=== PATIENT | female | born 1995 | race Two or more races ===

== ENCOUNTER 2025-06-12 06:45 | Observation (INO) | payer MEDICAID ==
--- NOTE | 2025-06-12 13:03 | DVHDS2 ---
Physician Discharge Progress N Final Diagnosis: IUP 33 wk, GDMA1 Secondary Diagnosis: Possible Nuchal cord seen on US Operations or Procedures: Operations or Procedures NST/BPP/ RACHEL all WNL Commentary: Commentary status reassuring. Not in labor Condition on Discharge: Stable Disposition: Home Discharge Instructions: Diet: Consistent carbohydrate Activity: Light activity Follow Up/Referral: As scheduled Medications: NA Follow Up Care: Discharge Statement: "Patient was advised to return to the ER or call 911 if any headaches, dizziness, shortness of breath, chest pain, abdominal pain, bleeding, fevers, or worsening of medical condition. Patient was counseled about treatment plan, medications, possible side effects, patientverbalized understanding. All questions were answered to the best of my ability. This discharge took greater then 30 minutes in planning, reviewing documentation, counseling the patient, and discussing with other team members." Visit Coding OBGYN Date of Service: Jun 12, 2025 Billing Provider: REINALDO NGO DO CAN TESTER Common Visit Codes: 57155-HBM/OBS SAME DATE (MOD) CAN TESTER Procedure Codes: 52663-49- NON-STRESS TEST REINALDO NGO DO Jun 12, 2025 13:03
--- NOTE | 2025-06-12 13:06 | DVH ---
BIOPHYSICAL PROFILE HISTORY: GDMA1 TECHNIQUE: Multiple transabdominal real-time grayscale sonographic images through the gravid uterus of the fetus with duplex Doppler color flow and M-mode spectral analysis FINDINGS: BIOPHYSICAL PROFILE: breathing score: 2 movement score: 2 tone score: 2 Quantitative RACHEL score: 2 (RACHEL: 12.5 Cm.) Total score: 8 The cervix was not seen Single live fetus in cephalic presentation. heart rate 150 beats per minute. Grade II anterior placenta without previa or abruption IMPRESSION: Biophysical profile score: 8 Possible nuchal cord.
== END 2025-06-12 13:28 | disposition home or self-care (01) ==
LOC: LDRP 12:00
PROVIDERS: ADMIT Obstetrics & Gynecology; ATTEND Obstetrics & Gynecology
DX: O24.419 Gestational diabetes mellitus in pregnancy, unspecified control (principal); Z98.890 Other specified postprocedural states; Z79.899 Other long term (current) drug therapy; Z3A.33 33 weeks gestation of pregnancy
CPT/HCPCS: 59025; 76819; 81002; 82948; G0378

== ENCOUNTER 2025-06-18 10:13 | Observation (INO) | payer MEDICAID ==
--- NOTE | 2025-06-18 10:58 | DVH ---
BIOPHYSICAL PROFILE HISTORY: GDMA2 Comparison Study: US BIOPHYSICAL PROFILE on DOS: 06/12/25 TECHNIQUE: Multiple real-time grayscale sonographic images through the gravid uterus of the fetus wit h duplex doppler color flow and M-mode spectral analysis FINDINGS: BIOPHYSICAL PROFILE: breathing score: 2 movement score: 2 tone score: 2 Quantitative RACHEL score: 2 (RACHEL: 13.9 cm.) Total score: 8 Cephalic positioning of the fetus. heart rate obtained measuring 141 beats per minute. No place nta previa or abruption noted. Anterior placenta is present. IMPRESSION: 1. Biophysical profile score: 8
[2025-06-18] MEDS ORDERED: METF-489 PO (11:30)
[2025-06-18] MEDS ORDERED: PREN-96 PO (11:30)
--- NOTE | 2025-06-19 06:12 | DVHDS2 ---
Discharge Summary Date of Admission Jun 18, 2025 at 10:13 Date of Discharge: Jun 18, 2025 Admitting Diagnosis 34 + GDMA2 Brief Hx & Hospital Course: Good care NST performed and reactive ; US reassuring Condition at Discharge: Good Final Diagnosis/Problems List 34 [id number] + weeks Discharge Disposition: Home Discharge Instruct/Medications Diet: Consistent carbohydrate Activity: No Restrictions, As Tolerated Follow Up/Referral: as scheduled kick counts labor precautions Scheduled Metformin Hydrochloride (Metformin Hcl Er), 1 TAB PO DAILY, (Reported) Vit W/ Ferrous Fumara ( One Daily), 1 TAB PO DAILY, (Reported) Discharge Statement: "Patient was advised to return to the ER or call 911 if any headaches, dizziness, shortness of breath, chest pain, abdominal pain, bleeding, fevers, or worsening of medical condition. Patient was counseled about treatment plan, medications, possible side effects, patientverbalized understanding. All questions were answered to the best of my ability. This discharge took greater then 30 minutes in planning, reviewing documentation, counseling the patient, and discussing with other team members." ASSESSMENT ASSESSMENT Assessment Visit Coding OBGYN Date of Service: Jun 18, 2025 Billing Provider: LISA LYNN DO ACADEMIC GUIDANCE SPECIALIST Common Visit Codes: 08954-ZVU/OBS SAME DATE (LOW), 69918-CDW/OBS SAME DATE (MOD), 29947-EWA/OBS SAME DATE (HIGH) ACADEMIC GUIDANCE SPECIALIST Procedure Codes: 71944-99- NON-STRESS TEST LISA LYNN DO Jun 19, 2025 06:12
== END 2025-06-18 11:38 | disposition home or self-care (01) ==
LOC: LDRP 10:13
PROVIDERS: ADMIT Obstetrics & Gynecology; ATTEND Obstetrics & Gynecology
DX: O24.419 Gestational diabetes mellitus in pregnancy, unspecified control (principal); Z3A.34 34 weeks gestation of pregnancy; Z98.890 Other specified postprocedural states; Z79.899 Other long term (current) drug therapy
CPT/HCPCS: 59025; 76819; 81002; 82948; 94760; G0378

== ENCOUNTER 2025-06-20 16:46 | Observation (INO) | payer MEDICAID ==
[~2025-06-20 16:46] MED LIST: METF-489 PO; PREN-96 PO
--- NOTE | 2025-06-20 18:23 | DVHDS2 ---
Physician Discharge Progress N Final Diagnosis: testing for GDM, A2 Operations or Procedures: Operations or Procedures 29yo IUP@34.5wks VSS NST reactive BPP 06/23 FKC/PTL precautions reviewed Dr. Escobar consulted, agrees with POC. Condition on Discharge: Stable Disposition: Home Discharge Instructions: Diet: Consistent carbohydrate Activity: No Restrictions, As Tolerated Follow Up/Referral: as scheduled Medications: see med list Follow Up Care: Specialist: f/u in 3 days Discharge Statement: "Patient was advised to return to the ER or call 911 if any headaches, dizziness, shortness of breath, chest pain, abdominal pain, bleeding, fevers, or worsening of medical condition. Patient was counseled about treatment plan, medications, possible side effects, patientverbalized understanding. All questions were answered to the best of my ability. This discharge took greater then 30 minutes in planning, reviewing documentation, counseling the patient, and discussing with other team members." Visit Coding OBGYN Date of Service: Jun 20, 2025 Billing Provider: LATANYA NORTH CNM WEAPONS OFFICER Common Visit Codes: 95333-[id number] OBS CARE (HIGH) WEAPONS OFFICER Procedure Codes: 52146-82- NON-STRESS TEST LATANYA NORTH CNM Jun 20, 2025 18:23
--- NOTE | 2025-06-20 19:59 | DVH ---
BIOPHYSICAL PROFILE HISTORY: GDMA2 Comparison Study: US BIOPHYSICAL PROFILE on DOS: 06/18/25, US BIOPHYSICAL PROFILE on DOS: 06/12/25 TECHNIQUE: Multiple real-time grayscale sonographic images through the gravid uterus of the fetus wi th duplex Doppler color flow and M-mode spectral analysis FINDINGS: BIOPHYSICAL PROFILE: breathing score: 3.71 movement score: 4.08 tone score: 2.08 Quantitative RACHEL score: 15.62 cm, normal Total score: 8, normal Single live fetus in cephalic presentation. IMPRESSION: 1. Biophysical profile score: 8, normal
== END 2025-06-20 18:16 | disposition home or self-care (01) ==
LOC: LDRP 16:46
PROVIDERS: ADMIT Obstetrics & Gynecology; ATTEND Obstetrics & Gynecology
DX: O24.419 Gestational diabetes mellitus in pregnancy, unspecified control (principal); Z3A.34 34 weeks gestation of pregnancy; Z98.890 Other specified postprocedural states; Z79.899 Other long term (current) drug therapy
CPT/HCPCS: 59025; 76819; 81002; 82948; 82962; 94760; G0378

== ENCOUNTER 2025-06-23 06:50 | Observation (INO) | payer MEDICAID ==
--- NOTE | 2025-06-23 14:14 | DVH ---
BIOPHYSICAL PROFILE HISTORY: GDMA2 TECHNIQUE: Multiple transabdominal real-time grayscale sonographic images through the gravid uterus of the fetus with duplex Doppler color flow and M-mode spectral analysis FINDINGS: BIOPHYSICAL PROFILE: breathing score: 2 movement score: 2 tone score: 2 Quantitative RACHEL score: 2 (RACHEL: 16.2 Cm.) Total score: 8 The cervix not well visualized Single live fetus in cephalic presentation. heart rate 151 beats per minute. Anterior placenta without previa or abruption IMPRESSION: Biophysical profile score: 8
--- NOTE | 2025-06-26 12:33 | DVHDS2 ---
Physician Discharge Progress N Final Diagnosis: gdm 34 wks Operations or Procedures: Operations or Procedures nst reactive reviwed,sono Condition on Discharge: Good Disposition: Home Discharge Instructions: Diet: Consistent carbohydrate Activity: No Restrictions, As Tolerated Medications: na Follow Up Care: Specialist: 3d Discharge Statement: "Patient was advised to return to the ER or call 911 if any headaches, dizziness, shortness of breath, chest pain, abdominal pain, bleeding, fevers, or worsening of medical condition. Patient was counseled about treatment plan, medications, possible side effects, patientverbalized understanding. All questions were answered to the best of my ability. This discharge took greater then 30 minutes in planning, reviewing documentation, counseling the patient, and discussing with other team members." Visit Coding OBGYN Date of Service: Jun 23, 2025 Billing Provider: MARIAM VASQUEZ DO STAFF AUDITOR Common Visit Codes: 25617-CWLPIKZ OBS CARE (HIGH) STAFF AUDITOR Procedure Codes: 19571-55- NON-STRESS TEST MARIAM VASQUEZ DO Jun 26, 2025 12:33
== END 2025-06-23 15:11 | disposition home or self-care (01) ==
LOC: UNDOADMOB 13:01 → LDRP 13:01
PROVIDERS: ADMIT Obstetrics & Gynecology; ATTEND Obstetrics & Gynecology
DX: O24.419 Gestational diabetes mellitus in pregnancy, unspecified control (principal); Z3A.35 35 weeks gestation of pregnancy; Z79.899 Other long term (current) drug therapy; Z98.890 Other specified postprocedural states
CPT/HCPCS: 59025; 76819; 81002; 82948; 82962; G0378

== ENCOUNTER 2025-06-26 07:04 | Observation (INO) | payer MEDICAID ==
--- NOTE | 2025-06-26 10:07 | DVH ---
BIOPHYSICAL PROFILE HISTORY: GDMA2 Comparison Study: US BIOPHYSICAL PROFILE on DOS: 06/23/25, US BIOPHYSICAL PROFILE on DOS: 06/20/25, US BI OPHYSICAL PROFILE on DOS: 06/18/25, US BIOPHYSICAL PROFILE on DOS: 06/12/25 TECHNIQUE: Multiple real-time grayscale sonographic images through the gravid uterus of the fetus wi th duplex Doppler color flow and M-mode spectral analysis FINDINGS: BIOPHYSICAL PROFILE: breathing score: 2 movement score: 2 tone score: 2 Quantitative RACHEL score: 2 (RACHEL: 16.6 Cm.) Total score: 8 The cervix is not visualized Single live fetus in cephalic presentation. heart rate 122 beats per minute. Cephalic placenta without previa or abruption IMPRESSION: Biophysical profile score: 8
--- NOTE | 2025-06-26 12:17 | DVHDS2 ---
Physician Discharge Progress N Final Diagnosis: gdma2 35wks Operations or Procedures: Operations or Procedures nst reactive reviwed,sono Condition on Discharge: Good Disposition: Home Discharge Instructions: Diet: Consistent carbohydrate Activity: No Restrictions, As Tolerated Medications: na Follow Up Care: Specialist: 1w Discharge Statement: "Patient was advised to return to the ER or call 911 if any headaches, dizziness, shortness of breath, chest pain, abdominal pain, bleeding, fevers, or worsening of medical condition. Patient was counseled about treatment plan, medications, possible side effects, patientverbalized understanding. All questions were answered to the best of my ability. This discharge took greater then 30 minutes in planning, reviewing documentation, counseling the patient, and discussing with other team members." Visit Coding OBGYN Date of Service: Jun 26, 2025 Billing Provider: MARIAM VASQUEZ DO BUCKLE SEWER MACHINE Common Visit Codes: 93595-IHRLPYS INP/OBS CARE (HIGH) BUCKLE SEWER MACHINE Procedure Codes: 59933-17- NON-STRESS TEST MARIAM VASQUEZ DO Jun 26, 2025 12:17
== END 2025-06-26 10:13 | disposition home or self-care (01) ==
LOC: LDRP 09:04
PROVIDERS: ADMIT Obstetrics & Gynecology; ATTEND Obstetrics & Gynecology
DX: O24.419 Gestational diabetes mellitus in pregnancy, unspecified control (principal); Z3A.35 35 weeks gestation of pregnancy; Z98.890 Other specified postprocedural states; Z79.899 Other long term (current) drug therapy
CPT/HCPCS: 59025; 76819; 81002; 82948; 82962; 94760; G0378

== ENCOUNTER 2025-06-29 11:39 | Outpatient (CLI) | payer MEDICAID ==
[2025-06-29 12:05] LABS: Hematocrit 41.7 % (36.0-46.0); Hemoglobin 14.5 g/dL (12.2-16.2); Mean Corpuscular Hemoglobin 28.7 pg (28.0-32.0); Mean Corpuscular Volume 82.4 fL (80.0-100.0); Nucleated Red Blood Cells % 0.0 %
[2025-07-01 00:07] LABS: Chlamydia Trachomatis, NAA Negative (Negative); Neisseria gonorrhoeae, NAA Negative (Negative)
== END 2025-06-29 17:00 | disposition home or self-care (01) ==
LOC: LAB 11:39
DX: Z34.80 Encounter for supervision of other normal pregnancy, unspecified trimester (principal); Z3A.00 Weeks of gestation of pregnancy not specified
CPT/HCPCS: 36415; 85025; 86780

== ENCOUNTER 2025-06-30 14:46 | Observation (INO) | payer MEDICAID ==
[~2025-06-30] VITALS: Ht 172.7 cm; Wt 93.0 kg
--- NOTE | 2025-06-30 20:25 | DVH ---
OB ULTRASOUND, LIMITED CLINICAL INDICATION: GDMA2 TECHNIQUE: Multiple grayscale ultrasound and M-mode images were obtained of the pelvis for evaluation of intrauterine . COMPARISON: US BIOPHYSICAL PROFILE on DOS: 06/26/25, US BIOPHYSICAL PROFILE on DOS: 06/23/25, US BIOPHYS ICAL PROFILE on DOS: 06/20/25 FINDINGS: A single living fetus is seen in cephalic presentation. Biophysical profile: 06/23 breathin movements: 2 tone: 2 Amniotic fluid: 2 Placenta: Anterior. Amniotic fluid: Visibly normal. RACHEL 19.3 cm heart rate: 130 beats/min. A complete anatomic survey was not performed on this exam. IMPRESSION: Biophysical profile: 06/23
[2025-06-30] MEDS: TERBUTALINE SULFATE 1 MG/ML 1ML VIAL SC SCH (21:26)
--- NOTE | 2025-06-30 22:29 | DVHDS2 ---
Physician Discharge Progress N Final Diagnosis: IUPat 36w 1d GDMA2 Contractions - Resolved Secondary Diagnosis: Contractions - Resolved Operations or Procedures: Operations or Procedures S: 30yo G presents to place for surveillance due to GDMA2. She reports normal movements, no UCs, no leakage of fluid, vaginal bleeding, PATEL, vision changes or epigastric pain O: A&O x3 NAD. Afebrile, VSS Respiration: unlabored heart and lung sounds normal. Abdomen: Gravid, non-tender to palpation Extremities: No edema BPP 8/8 EFM FHR baseline 135 mod variability with accelerations, no deceleration. UCs noted VE by RN 2.5/50% -2 A: Normal BPP Reactive NST Contractions P: Oral hydration Tocolysis with Terbutaline per consult with Dr Escobar Reassessment: O: UCs resolved; 1 in 20min A: Normal BPP Reactive NST Contractions - Resolved P: Discharge home with instructions Continue nutrition, exercise and surveillance 2x/week 3rd trimester emergency S&S FMC, PTL & pre-eclampsia precautions reviewed with pt; advised to seek health care if any symptom including but not limited to any of the above. Keep all Scheduled OB follow appointment with OB provider; seek care sooner if any symptoms Condition on Discharge: Stable Disposition: Home Discharge Instructions: Diet: See Comment Diet comment: Follow diet as advised for diabetes management. Ensure adequate hydration with water Activity: See Comment Activity comment: Pelvic rest and avoid vigorous / rigorous activity Medications: None Follow Up Care: Discharge Statement: "Patient was advised to return to the ER or call 911 if any headaches, dizziness, shortness of breath, chest pain, abdominal pain, bleeding, fevers, or worsening of medical condition. Patient was counseled about treatment plan, medications, possible side effects, patientverbalized understanding. All questions were answered to the best of my ability. This discharge took greater then 30 minutes in planning, reviewing documentation, counseling the patient, and discussing with other team members." Visit Coding OBGYN Date of Service: Jun 30, 2025 Billing Provider: LINETTE DENISE CNM PLASTIC TOOL MAKER Common Visit Codes: 39254-PXC/OBS SAME DATE (HIGH) PLASTIC TOOL MAKER Procedure Codes: 27964-05- NON-STRESS TEST LINETTE DENISE CNM Jun 30, 2025 22:29
== END 2025-06-30 22:35 | disposition home or self-care (01) ==
LOC: LDRP 18:56
PROVIDERS: ADMIT Obstetrics & Gynecology; ATTEND Obstetrics & Gynecology
DX: O60.03 Preterm labor without delivery, third trimester (principal); O24.419 Gestational diabetes mellitus in pregnancy, unspecified control; Z3A.36 36 weeks gestation of pregnancy; Z79.899 Other long term (current) drug therapy
CPT/HCPCS: 59025; 76819; 81002; 82948; 82962; 94760; 96372; G0378; J3105

== ENCOUNTER 2025-07-03 19:05 | Observation (INO) | payer MEDICAID ==
--- NOTE | 2025-07-03 20:20 | DVH ---
BIOPHYSICAL PROFILE HISTORY: GDMA2 TECHNIQUE: Multiple transabdominal real-time grayscale sonographic images through the gravid uterus of the fetus with duplex Doppler color flow and M-mode spectral analysis FINDINGS: BIOPHYSICAL PROFILE: breathing score: 2 movement score: 2 tone score: 2 Quantitative RACHEL score: 2 (RACHEL: 16.7 Cm.) Total score: 8 The cervix is not well-visualized Single live fetus in cephalic presentation. heart rate 130 beats per minute. Anterior placenta without previa or abruption Possible nuchal cord is visualized. IMPRESSION: Biophysical profile score: 8 Possible nuchal cord is visualized.
--- NOTE | 2025-07-04 05:29 | DVHDS2 ---
Physician Discharge Progress N Final Diagnosis: GDMA2 Secondary Diagnosis: Encounter for surveillance Suspected nuchal cord Operations or Procedures: Operations or Procedures NST/BPP RACHEL Commentary: Commentary PATIENT: BONITA RIVERA ACCT: [id number] UNIT: [id number] : 1995 LOC: [facility] ROOM / BED: TRIAGE1 / A AGE / SEX: 29 / F ADM STATUS: ADM IN SERVICE 04 ORDERING PHYSICIAN: REINALDO NGO DO PROCEDURE(s): BPP - BIOPHYSICAL PROFILE REASON: GDMA2 ORDER NUMBER(s): [id number], ACCESSION NUMBER(s): [id number] BIOPHYSICAL PROFILE HISTORY: GDMA2 TECHNIQUE: Multiple transabdominal real-time grayscale sonographic images through the gravid uterus of the fetus with duplex Doppler color flow and M-mode spectral analysis FINDINGS: BIOPHYSICAL PROFILE: breathing score: 2 movement score: 2 tone score: 2 Quantitative RACHEL score: 2 (RACHEL: 16.7 Cm.) Total score: 8 The cervix is not well-visualized Single live fetus in cephalic presentation. heart rate 130 beats per minute. Anterior placenta without previa or abruption Possible nuchal cord is visualized. IMPRESSION: Biophysical profile score: 8 Possible nuchal cord is visualized. ATED BY: BETTINA ENCINAS DO DICTATED DATE/TIME: 07/03/252017 Condition on Discharge: Stable Disposition: Home Discharge Instructions: Diet: Consistent carbohydrate Activity: No Restrictions, As Tolerated Follow Up/Referral: as scheduled 2x/wk NST/BPP Medications: no new meds Follow Up Care: Discharge Statement: "Patient was advised to return to the ER or call 911 if any headaches, d izziness, shortness of breath, chest pain, abdominal pain, bleeding, fevers, or worsening of medical condition. Patient was counseled about treatment plan, medications, possible side effects, patientverbalized understanding. All questions were answered to the best of my ability. This discharge took greater then 30 minutes in planning, reviewing documentation, counseling the patient, and discussing with other team members." Visit Coding OBGYN Date of Service: Jul 04, 2025 Billing Provider: REINALDO NGO DO SUPPLY CHAIN CONSULTANT Common Visit Codes: 60114-ZGT/OBS SAME DATE (HIGH) SUPPLY CHAIN CONSULTANT Procedure Codes: 07751-90- NON-STRESS TEST REINALDO NGO DO Jul 04, 2025 05:29
== END 2025-07-03 20:25 | disposition home or self-care (01) ==
LOC: LDRP 19:05
PROVIDERS: ADMIT Obstetrics & Gynecology; ATTEND Obstetrics & Gynecology
DX: O24.419 Gestational diabetes mellitus in pregnancy, unspecified control (principal); Z3A.36 36 weeks gestation of pregnancy; Z98.890 Other specified postprocedural states
CPT/HCPCS: 59025; 76819; 81002; 82948; 82962; 94760; G0378

== ENCOUNTER 2025-07-07 06:25 | Observation (INO) | payer MEDICAID ==
[~2025-07-07] VITALS: Ht 172.7 cm; Wt 93.0 kg
--- NOTE | 2025-07-07 10:06 | DVH ---
CLINICAL HISTORY: Gestational diabetes. COMPARISON: US BIOPHYSICAL PROFILE on DOS: 07/03/25, US BIOPHYSICAL PROFILE on DOS: 06/30/25, US BIOPHY SICAL PROFILE on DOS: 06/26/25 TECHNIQUE: biophysical profile was performed. Transabdominal sonographic images of the fetus we re obtained. FINDINGS: The fetus is in cephalic position. heart rate measures 134 BPM. Amniotic fluid index measures 14.7 cm. The placenta is anterior in position without visualized evidence of previa or abrup tion. BPP profile is an overall score of 8/8, with 2/2 points for breathing, with at least one episode of breathing over a 30 second duration during a 30 minute observation, 2/2 points for m ovements, with 3 or more discrete body or limb movements, 2/2 points for tone, with one or more episodes of extremity extension with return to flexion, or opening and closing of hand, and 2/ 2 points for amniotic fluid, with at least 1 pocket of amniotic fluid that measures 2 cm in 2 perpend icular planes. IMPRESSION: 1. BPP score of 8/8.
--- NOTE | 2025-07-07 14:06 | DVHDS2 ---
Physician Discharge Progress N Final Diagnosis: gdm Operations or Procedures: Operations or Procedures nst reacttive alonso whitaker Condition on Discharge: Good Disposition: Home Discharge Instructions: Diet: Consistent carbohydrate Activity: Light activity Medications: na Follow Up Care: Specialist: 3d Discharge Statement: "Patient was advised to return to the ER or call 911 if any headaches, dizziness, shortness of breath, chest pain, abdominal pain, bleeding, fevers, or worsening of medical condition. Patient was counseled about treatment plan, medications, possible side effects, patientverbalized understanding. All questions were answered to the best of my ability. This discharge took greater then 30 minutes in planning, reviewing documentation , counseling the patient, and discussing with other team members." Visit Coding OBGYN Date of Service: Jul 07, 2025 Billing Provider: MARIAM VASQUEZ DO HAUL CANE BRAKEMAN Common Visit Codes: 92958-[id number] INP/OBS CARE (HIGH) HAUL CANE BRAKEMAN Procedure Codes: 84243-05- NON-STRESS TEST MARIAM VASQUEZ DO Jul 07, 2025 14:06
== END 2025-07-07 10:26 | disposition home or self-care (01) ==
LOC: LDRP 09:08
PROVIDERS: ADMIT Obstetrics & Gynecology; ATTEND Obstetrics & Gynecology
DX: O24.419 Gestational diabetes mellitus in pregnancy, unspecified control (principal); Z3A.37 37 weeks gestation of pregnancy; Z79.899 Other long term (current) drug therapy
CPT/HCPCS: 59025; 76819; 81002; 82948; 94760; G0378

== ENCOUNTER 2025-07-11 06:56 | Observation (INO) | payer MEDICAID ==
--- NOTE | 2025-07-11 09:19 | DVH ---
BIOPHYSICAL PROFILE HISTORY: GDMA2 TECHNIQUE: Multiple transabdominal real-time grayscale sonographic images through the gravid uterus of the fetus with duplex Doppler color flow and M-mode spectral analysis FINDINGS: BIOPHYSICAL PROFILE: breathing score: 2 movement score: 2 tone score: 2 Quantitative RACHEL score: 2 (RACHEL: 22.7 Cm.) Total score: 8 The cervix not well visualized. Single live fetus in cephalic presentation. heart rate 138 beats per minute. Anterior placenta without previa or abruption IMPRESSION: Biophysical profile score: 8
--- NOTE | 2025-07-11 11:46 | DVHDS2 ---
Physician Discharge Progress N Final Diagnosis: IUP at 37.5wks and stable testing for GDM, A2 Operations or Procedures: Operations or Procedures 29yo IUP@37.5wks VSS NST reactive FKC/LABOR precautions reviewed Dr. Escobar consulted, agrees with POC. Other Interventions Other Interventions [facility] [id number] [place] [id number] Ph: [phone] DIAGNOSTIC IMAGING Diagnostic Imaging Report : [id number] Signed PATIENT: BONITA RIVERA ACCT: [id number] UNIT: [id number] : 1995 LOC: [facility] ROOM / BED: TRIAGE1 / A AGE / SEX: 29 / F ADM STATUS: ADM IN SERVICE 3 ORDERING PHYSICIAN: LATANYA NORTH CNM PROCEDURE(s): BPP - BIOPHYSICAL PROFILE REASON: GDMA2 ORDER NUMBER(s): [id number], ACCESSION NUMBER(s): [id number] BIOPHYSICAL PROFILE HISTORY: GDMA2 TECHNIQUE: Multiple transabdominal real-time grayscale sonographic images through the gravid uterus of the fetus with duplex Doppler color flow and M-mode spectral analysis FINDINGS: BIOPHYSICAL PROFILE: breathing score: 2 movement score: 2 tone score: 2 Quantitative RACHEL score: 2 (RACHEL: 22.7 Cm.) Total score: 8 The cervix not well visualized. Single live fetus in cephalic presentation. heart rate 138 beats per minute. Anterior placenta without previa or abruption IMPRESSION: Biophysical profile score: 8 ATED BY: TRISH LAMAR MD DICTATED DATE/TIME: 07/11/25916 SIGNED BY: TRISH LAMAR MD SIGNED DATE/TIME: 07/11/25916 CC: Condition on Discharge: Stable Disposition: Home Discharge Instructions: Diet: Consistent carbohydrate Activity: No Restrictions, As Tolerated Medications: see med list Follow Up Care: Specialist: f/u in 3 days Discharge Statement: "Patient was advised to return to the ER or call 911 if any headaches, dizziness, shortness of breath, chest pain, abdominal pain, bleeding, fevers, or worsening of medical condition. Patient was counseled about treatment plan, medications, possible side effects, patientverbalized understanding. All questions were answered to the best of my ability. This discharge took greater then 30 minutes in planning, reviewing documentation, counseling the patient, and discussing with other team members." Visit Coding OBGYN Date of Service: Jul 11, 2025 Billing Provider: LATANYA NORTH CNM MANAGER PRODUCT MANAGEMENT Common Visit Codes: 36500-VOPVPDX OBS CARE (HIGH) MANAGER PRODUCT MANAGEMENT Procedure Codes: 59191-63- NON-STRESS TEST LATANYA NORTH CNM Jul 11, 2025 11:46
== END 2025-07-11 09:57 | disposition home or self-care (01) ==
LOC: UNDOADMOB 08:16 → LDRP 08:16 → UNDODISOB 09:57
PROVIDERS: ADMIT Obstetrics & Gynecology; ATTEND Obstetrics & Gynecology
DX: O24.419 Gestational diabetes mellitus in pregnancy, unspecified control (principal); Z3A.37 37 weeks gestation of pregnancy; Z98.890 Other specified postprocedural states
CPT/HCPCS: 59025; 76819; 81002; 82962; 94760; G0378

== ENCOUNTER 2025-07-14 02:55 | Inpatient (IN) | payer MEDICAID ==
[~2025-07-14] VITALS: Ht 165.1 cm; Wt 83.9 kg
[2025-07-14] MEDS ORDERED: LACTATED RINGER'S 1,000 ML IV SCH (03:30)
[2025-07-14] MEDS ORDERED: BUTORPHANOL TARTRATE 2 MG/1 ML VIAL IV PRN ×2 (03:30)
[2025-07-14] MEDS ORDERED: LIDOCAINE 2%HCL (LOCAL ANESTH.) INJ 20ML MDV IJ PRN (03:30)
--- NOTE | 2025-07-14 03:44 | DVHHP2 ---
OB CC & HPI Date Date of Admission: Jul 14, 2025 Patient Identification: : 4 Para: 2 EDC: Jul 27, 2025 EGA: 38w1d Chief Complaints: Reason for admission: active labor, rupture of membranes Admission Nurse Assessment Rev: Yes History of Present Complaints Zoe Tomlin is a 29 year old with IUP at 38w1d presenting for r/o SROM. Patient states she began leaking clear fluid at 0040. She is also having co ntractions every 2-3 minutes. Denies vaginal bleeding and states positive movement. GBS negative. GDMA2 OB Hx: -LMP: 10/20/24 -PNC with Dr Escobar -Hx pre-e with 1st - x2, no delivery complications Past Medical History Cardiac: No pertinent Hx Pulmonary: No pertinent Hx Central Nervous System: No pertinent Hx GI: No pertinent Hx Hemotology/Oncology: No pertinent Hx Hepatobiliary: No pertinent Hx Psychiatric: No pertinent Hx Musculoskeletal: No pertinent Hx Rheumotologic: No pertinent Hx Infectious Disease: No peritnent Hx ENT: No pertinent Hx Renal/: No pertinent Hx Endocrine: No pertinent Hx Dermatology: No pertinent Hx Past Surgical History: No pertinent Hx Others BBL 4 years ago OB History OB History Care: Good Care Ultrasounds: Normal mid trimester US Obstetrical Complications: Gestational Diabetes (A2 on metformin) Medical Complications: None Allergies: Coded Allergies: NO KNOWN ALLERGIES (Unverified , 06/30/25) Home Meds Reported Medications Vit W/ Ferrous Fumara ( One Daily) Daily Tab, 1 TAB PO DAILY, #90 TAB 3 Refills 06/18/25 Metformin Hydrochloride (METFORMIN HCL ER) 500 Mg Tab, 1 TAB PO DAILY, #90 TAB 1 Refill 06/18/25 Current Medications Current Medications Medications (Trade) Dose Ordered Sig/Gwyn Route PRN Reason Start Time Stop Time Status Last Admin Lactated Ringer's 1,000 ml @ 125 mls/hr Q8H IV 07/14/25 03:30 UNV Witch Rita (Tucks) 1 pad PRN PRN TOP PERINEAL AREA DISCOMFORT 07/14/25 03:30 UNV Sodium Lauryl Sulfate (Phisoderm) 240 ml PRN PRN TOP PERINEAL AREA DISCOMFORT 07/14/25 03:30 UNV Benzocaine (Dermoplast) 1 applic PRN PRN TOP PERINEAL AREA DISCOMFORT 07/14/25 03:30 UNV Butorphanol Tartrate (Stadol Injection) 1 mg Q4HPRN PRN IV MODERATE PAIN (4-6 PAIN SCALE) 07/14/25 03:30 UNV Butorphanol Tartrate (Stadol Injection) 2 mg Q4HPRN PRN IV SEVERE PAIN (7-10 PAIN SCALE) 07/14/25 03:30 UNV Lidocaine HCl (Xylocaine) 20 ml ONCE PRN IJ PERINEAL AREA DISCOMFORT 07/14/25 03:30 UNV Diagnostic Test (Pha) (Accu-Chek Comfort Curve T) 1 strip Q4HP 07/14/25 04:00 UNV Family & Social History Family/Social History Blood Type: B+ Rubella: immune RPR/VDRL: Negative GBS Status: Negative HBsAG: Negative Review of Systems Constitutional: No symptom reported Ears, Nose, & Throat: No symptom reported Eyes: No symptom reported Pulmonary/Respiratory: No symptom reported Cardiovascular: No symptom reported Gastrointestinal: No symptom reported Genitourinary: No symptom reported Musculoskeletal: No symptom reported Skin: No symptom reported Psychiatric: No symptom reported Endocrine: No symptom reported Hemotologic/Lymphatic: No symptom reported OB Admission Exam Physical Exam Vitals: VSS. See CPN HEENT: NCAT, Nasal Mucosa Normal, Oropharynx Normal, PERRLA, Moist Membranes Heart: Rhythm Normal Lungs: Clear Abdomen: Gravid Extremities: Normal Reflexes: Normal Membranes: Ruptured Amniotic Fluid: Clear Heart Rate: 130's Accelerations: Accelerations Present Decelerations: No Decelerations Short Term Variability: Present Care Home Variability: Average (6-25) Contractions on Admission: < 5 Minutes Apart Intensity: Moderate OB Plan Plan Admitting Diagnosis: IUP at 38w1d SROM and in labor Category 1 tracing GBS negative Plan: Expectant Management Other Plan: -Plan of care and plan discussed with Patient -Process, Risks, benefits, of available management options discussed, including starting with expectant management, augmentation if indicated, Internal monitoring of UCs & FHT, AROM, amnioinfusion etc only when indicated -Patient agrees to starting with expectant management at this time, ; other interventions as indicated. Informed Consent obtained -Consent for possible blood transfusion obtained. -All questions answered. -Admit to Place for Labor -Routine L&D Admission orders -EFM per policy. OK to be intermittent per protocol, if FHR tracing is reactive and category 1 -Encourage ambulation and/exercises / frequent position change to facilitate labor & descent -Supportive care as needed. Patient requesting epidural at this time -Accucheck bedside blood glucose q 2 hours. -Re-assess cervix in 6 hours to evaluate need for augmentation -Anticipate normal spontaneous vaginal delivery Visit Coding OBGYN Date of Service: Jul 14, 2025 Billing Provider: GREGORY DAMON CNM WET INSPECTOR [employer] Common Visit Codes: 38731-[id number] OBS CARE (HIGH) [employer] Procedure Codes: 37773-35- NON-STRESS TEST GREGORY DAMON CNM Jul 14, 2025 03:44
[2025-07-14] MEDS: DERMOPLAST 60ML BOTTLE TOP PRN (03:45)
[2025-07-14] MEDS: PHISODERM TOP SOLN 240ML BTL TOP PRN (03:45)
[2025-07-14] MEDS: WITCH HAZEL-GLYCERIN PAD TOP PRN (03:45)
[2025-07-14] MEDS ORDERED: ACCU-CHEK COMFORT CURVE STRIP VI SCH (04:00)
[2025-07-14 04:10] LABS: Hematocrit 41.0 % (36.0-46.0); Hemoglobin 14.3 g/dL (12.2-16.2); Mean Corpuscular Hemoglobin 28.8 pg (28.0-32.0); Mean Corpuscular Volume 82.5 fL (80.0-100.0); Nucleated Red Blood Cells % 0.1 %
[2025-07-14 04:16] LABS: Alanine Aminotransferase 18 U/L (7-40); Albumin 4.4 g/dL (3.2-4.8); Anion Gap 12 (5-15); Bilirubin, Total 0.3 mg/dL (0.2-1.0); Calcium 9.6 mg/dL (8.7-10.4); Carbon Dioxide 21 mmol/L (20-31); Chloride 106 mmol/L (98-107); Glucose 95 mg/dL (74-106); Potassium 3.6 mmol/L (3.5-5.1); Sodium 139 mmol/L (136-145); Total Protein 7.2 g/dL (5.7-8.2)
[2025-07-14 04:19] LABS: Alkaline Phosphatase 144 U/L (46-116); BUN/Creatinine Ratio 12.2 (10.0-20.0); Blood Urea Nitrogen < 5 mg/dL (9-23)
[2025-07-14 04:27] LABS: INR 1.0 (0.9-1.15); Partial Thromboplastin Time 26.5 SEC (24.5-34.5); Prothrombin Time 10.6 sec (9.3-11.8)
[2025-07-14 04:36] LABS: Amphetamine Screen, Urine Neg (NEGATIVE); Barbiturate Scree,Urine Neg (NEGATIVE); Benzodiazephine Screen, Urine Neg (NEGATIVE); Cocaine Screen, Urine Neg (NEGATIVE)
[2025-07-14 04:37] LABS: Cannabinoid Screen, Urine Neg (NEGATIVE); Opiate Scree,Urine Neg (NEGATIVE); Phencyclidine Screen, Urine Neg (NEGATIVE)
[2025-07-14 04:41] LABS: Urine Protein, UAD Negative (Negative)
[2025-07-14] MEDS: LACT. RINGERS/OXYTOCIN 20UNITS 500 ML IV ONE ×2 (05:26→05:27)
--- NOTE | 2025-07-14 05:34 | LDN2 ---
Labor and Delivery Note Date 07/14/25 Age 29 4 Para 2->3 EDC 07/27/25 EGA 38w1d Diagnosis Intact perineum GDMA2 Vaginal Delivery: VTX Vacuum Assisted: No Placenta: Spontaneous (ela) Sex: Male Weight pending. Davis Hour in progress Apgars 9/9 Nuchal Cord Transected: No Amniotic Fluid: Clear Episiotomy: No Extension: No Repaired with 3-0 chromic SH EBL 100 in drape Comments/Significant Med Yoandy At 0459 this 29yo now delivered a viable male by w/ APGARS 9/9. [place]. Infant placed skin to skin on pts chest. True knot noted in cord and shown to patient Cord clamped and cut after 2.5 minutes. Cord blood sent. Intact 3-vessel cord and intact placenta (Ela), delivered spontaneously Pitocin IV bolus started. Placenta being taken home by pt to be encapsulated Cervix inspected and intact. Superficial left and right labial lacerations noted. Hemostatic. Discussed options with patient to leave them without sutures, repair both, or repair one to help prevent them from healing together. Patient opted to put a stitch into the L labial laceration. One interrupted stitch placed with 3-0 chromic SH Fundus at U, firm, midline, and light lochia. QBL 100ml. VSS. Count correct x2. Patient to care and baby to couplet care, both stable. Visit Coding OBGYN Date of Service: Jul 14, 2025 Billing Provider: GREGORY DAMON CNM C[employer] CUTTER HELPER Common Visit Codes: [id number] INP/OBS CARE(HIGH) [employer] C[employer] HEL[employer] Procedure Codes: 46132-YXK DEL INCLUDING GREGORY DAMON CNM Jul 14, 2025 05:34
[2025-07-14] MEDS ORDERED: ACETAMINOPHEN 325 MG TAB PO PRN (07:00)
[2025-07-14] MEDS ORDERED: ONDANSETRON ODT 4 MG TAB PO PRN (07:00)
[2025-07-14] MEDS: METHYLERGONOVINE MALEATE 0.2 MG/ML AMP IM ONE (11:19)
[2025-07-14 11:30] VITALS: BP 115/72; PULSE 92; RESP 16; TEMP 98.2; O2SAT 98
[2025-07-14 14:43] VITALS: BP 119/68; PULSE 88; RESP 16; TEMP 98.5; O2SAT 98
[2025-07-14 19:00] VITALS: BP 112/68; PULSE 99; RESP 17; TEMP 98.5; O2SAT 97
[2025-07-14] MEDS: IBUPROFEN 600 MG TAB PO PRN (20:20)
[2025-07-14 23:00] VITALS: BP 113/64; PULSE 84; RESP 16; TEMP 98.3; O2SAT 98
[2025-07-15 03:07] VITALS: BP 112/74; PULSE 89; RESP 16; TEMP 98.2; O2SAT 97
--- NOTE | 2025-07-15 04:31 | DVHPN2 ---
Progress Note Date Seen: Jul 15, 2025 Subjective S: Lochia minimal Tolerating regular diet well. Ambulating and voiding well w/o feeling lightheaded or dizzy. Passing flatus but no BM yet. Breast feeding. Contraceptive plan: IUD Desires and requests to be discharged home today vital signs Vital Sign Date Time Temp Pulse Resp B/P (MAP) Pulse Ox O2 Delivery O2 Flow Rate FiO2 07/15/25 03:07 98.2 89 16 112/74 (87) 97 98.2 07/14/25 19:00 Room Air Total Intake and Output 07/14/25 07/14/25 07/15/25 15:00 23:00 07:00 Output Total 2200 ml 600 ml Balance -2200 ml -600 ml medications Current Medications Medications Dose Ordered Sig/Gwyn Route Start Time Stop Time Status Last Admin Dose Admin Masha Salinas 1 pad PRN PRN TOP 07/14/25 03:30 07/14/25 03:45 1 PAD Sodium Lauryl Sulfate 240 ml PRN PRN TOP 07/14/25 03:30 07/14/25 03:45 240 ML Benzocaine 1 applic PRN PRN TOP 07/14/25 03:30 07/14/25 03:45 1 APPLIC Lidocaine HCl 20 ml ONCE PRN IJ 07/14/25 03:30 Ibuprofen 600 mg Q6HP PRN PO 07/14/25 07:00 07/14/25 20:20 600 MG Acetaminophen 650 mg Q4HP PRN PO 07/14/25 07:00 Ondansetron HCl 4 mg Q4HPRN PRN PO 07/14/25 07:00 Misoprostol 200 mcg ONCE PRN SL 07/14/25 10:30 07/14/25 11:19 200 MCG Misoprostol 600 mcg ONCE PRN DC 07/14/25 10:30 laboratory and microbiology Laboratory Tests 07/14/25 03:39 Test 07/14/25 03:39 Range/Units Serum Glucose 95 74-106 mg/dL Objective O: A&O x3 NAD. Afebrile, VSS Chest: heart and lung sounds normal. Breasts: Nipples intact w/o cracks or soreness Abdomen: normal BS, soft, non-tender, no rebound or guarding, fundus firm @ U- 1, lochia minimal Perineum:- no edema, or erythema, Labial laceration site with suture intact, edges in good approximation. Extremities: no edema or tenderness Lochia - minimal Labs Assessment/Plan 29 yo now ppd#1 s/p doing well. Blood Type: B Rh: Positive Breast feeding g Rubella Immune Pain control with oral medications Bowel regimen: Increase fluid intake and fiber in diet, Laxative PRN PP BCM Plan: IUD Discharge plan: May discharge home later today if condition remains stable Plan discussed with: Patient, Spouse Visit Coding OBGYN Date of Service: Jul 15, 2025 Billing Provider: LINETTE DENISE CNM [employer] MACHINE OPERATOR Common Visit Codes: [id number] INP/OBS CARE(HIGH) LINETTE DENISE CNM Jul 15, 2025 04:31
--- NOTE | 2025-07-15 04:52 | DVHDS2 ---
Discharge Summary Date of Admission Jul 14, 2025 at 03:19 Date of Discharge: Jul 15, 2025 Admitting Diagnosis IUP at 38w 1d SROM Labor GDMA2 GBS Neg Labs/Diagnostic Data: Laboratory Results Test 07/14/25 03:39 07/14/25 03:30 White Blood Count 9.1 10^3/uL (4.4-10.8) Red Blood Count 4.97 10^6/uL (4.0-5.20) Hemoglobin 14.3 g/dL (12.2-16.2) Hematocrit 41.0 % (36.0-46.0) Mean Corpuscular Volume 82.5 fL (80.0-100.0) Mean Corpuscular Hemoglobin 28.8 pg (28.0-32.0) Mean Corpuscular Hemoglobin Concent 34.9 g/dL (32.0-36.0) Red Cell Distribution Width 15.3 % (11.8-14.3) Platelet Count 306 10^3/uL (140-450) Mean Platelet Volume 8.9 fL (6.9-10.8) Neutrophils (%) (Auto) 66.6 % (37.0-80.0) Lymphocytes (%) (Auto) 24.0 % (10.0-50.0) Monocytes (%) (Auto) 8.4 % (0.0-12.0) Eosinophils (%) (Auto) 0.7 % (0.0-7.0) Basophils (%) (Auto) 0.3 % (0.0-2.0) Neutrophils # (Auto) 6.0 10 ^3/uL (1.6-8.6) Lymphocytes # (Auto) 2.2 10 ^3/uL (0.4-5.4) Monocytes # (Auto) 0.8 10 ^3/uL (0-1.3) Eosinophils # (Auto) 0.1 10 ^3/uL (0-0.8) Basophils # (Auto) 0 10 ^3/uL (0-0.2) Nucleated Red Blood Cells 0.1 % Prothrombin Time 10.6 sec (9.3-11.8) Prothrombin Time INR 1.00 (0.9-1.15) Activated Partial Thromboplast Time 26.5 SEC (24.5-34.5) Sodium Level 139 mmol/L (136-145) Potassium Level 3.6 mmol/L (3.5-5.1) Chloride Level 106 mmol/L (98-107) Carbon Dioxide Level 21 mmol/L (20-31) Anion Gap 12 (5-15) Blood Urea Nitrogen < 5 mg/dL (9-23) Creatinine 0.41 mg/dL (0.550-1.02) Glomerular Filtration Rate Calc 135 mL/min (>90) BUN/Creatinine Ratio 12.2 (10.0-20.0) Serum Glucose 95 mg/dL (74-106) Calcium Level 9.6 mg/dL (8.7-10.4) Total Bilirubin 0.3 mg/dL (0.2-1.0) Aspartate Amino Transferase (AST) 22 U/L (13-40) Alanine Aminotransferase (ALT) 18 U/L (7-40) Alkaline Phosphatase 144 U/L (46-116) Total Protein 7.2 g/dL (5.7-8.2) Albumin 4.4 g/dL (3.2-4.8) Treponema pallidum Antibody Non-reactive (Negative) Hepatitis C Antibody Negative (Negative) Urine Color Colorless (Yellow) Urine Clarity Clear (Clear) Urine pH 6.5 (5.0-9.0) Urine Specific [place] 1.003 (1.001-1.035) Urine Protein Negative (Negative) Urine Ketones Negative (Negative) Urine Blood Negative /uL (Negative) Urine Nitrite Negative (Negative) Urine Bilirubin Negative (Negative) Urine Urobilinogen Normal mg/dL (Negative) Urine Leukocyte Esterase Negative /uL (Negative) Urine RBC None seen /hpf (0 - 4) Urine Microscopic WBC 2 /HPF (0-5) Urine Squamous Epithelial Cells Few /hpf (<5) Urine Bacteria None seen /hpf (None Seen) Urine Hyaline Casts Few /lpf (0 - 2) Urine Glucose Normal mg/dL (Normal) Urine Opiates Screen Neg (NEGATIVE) Urine Fentanyl Screen Neg (NEGATIVE) Urine Barbiturates Screen Neg (NEGATIVE) Urine Phencyclidine Screen Neg (NEGATIVE) Urine Amphetamines Screen Neg (NEGATIVE) Urine Benzodiazepines Screen Neg (NEGATIVE) Urine Cocaine Screen Neg (NEGATIVE) Urine Cannabinoids Screen Neg (NEGATIVE) Other Laboratory Tests 07/14/25 03:39 Brief Hx & Hospital Course: Ms Tomlin, a [id number],2014 was admitted on 07/14/2025 at 38w 1d EGA for labor & SROM. complicated by GDMA2. Patient had an uneventful labor and she progressed to 2nd stage of labor and had a over an intact perineum but had labial laceration. ( See Delivery Note for details) Normal course; meeting milestones w/o any problem or complications. Operations or Procedures Repair of Labial Laceration Condition at Discharge: Good Final Diagnosis/Problems List Same Term - Delivered Discharge Disposition: Home Discharge Instruct/Medications Diet: Regular Diet comment: Diet: Routine regular diet rich in fiber, protein, iron and vitamin C with adequate fluid intake Activity: No Restrictions, As Tolerated Activity comment: Unrestricted. Advance as tolerated. Balance activities with rest periods No heavy lifting, pushing or straining. Pelvic rest x 6weeks Follow Up/Referral: Follow up with OB Provider in 1-2weeks Medications: Medications: Ibuprofen 600mg every 6 hours as needed for pain. Continue Vitamin with iron Scheduled Metformin Hydrochloride (Metformin Hcl Er), 1 TAB PO DAILY, (Reported) Vit W/ Ferrous Fumara ( One Daily), 1 TAB PO DAILY, (Reported) Discharge Statement: self care instructions given. emergency signs and symptoms including but not limited to pre-eclampsia precautions and signs of infection, PPH & of PPD reviewed with patient. Follow up with OB Provider in 1 week "Patient was advised to return to the ER or call 911 if any headaches, dizziness, shortness of breath, chest pain, abdominal pain, bleeding, fevers, or worsening of medical condition. Patient was counseled about treatment plan, medications, possible side effects, patientverbalized understanding. All questions were answered to the best of my ability. This discharge took greater then 30 minutes in planning, reviewing documentation, counseling the patient, and discussing with other team members." ASSESSMENT ASSESSMENT Hospital Course fredy Manuel G4,2013 was admitted on 07/14/2025 at 38w 1d EGA for labor & SROM. complicated by GDMA2. Patient had an uneventful labor and she progressed to 2nd stage of labor and had a over an intact perineum but had labial laceration. ( See Delivery Note for details) Normal course; meeting milestones w/o any problem or complications. Assessment Term - Delivered GDMA2 Day #1 Visit Coding OBGYN Date of Service: Jul 15, 2025 Billing Provider: LINETTE DENISE CNM SPAR MACHINE OPERATOR Common Visit Codes: 47930-NMZ/OBS DISCH DAY <30MIN LINETTE DENISE CNM Jul 15, 2025 04:51
[2025-07-15 07:00] VITALS: BP 110/57; PULSE 80; RESP 18; TEMP 98.3; O2SAT 95
[2025-07-15 11:05] VITALS: BP 111/66; PULSE 81; RESP 18; TEMP 98.1; O2SAT 96
[2025-07-15 13:05] VITALS: BP 125/80; PULSE 64; RESP 18; TEMP 98.2; O2SAT 98
[2025-07-15] MEDS: TETANUS-DIPTH-ACEL PERTUSSIS 0.5ML SYR Tdap IM ONE (13:05)
== END 2025-07-15 14:15 | disposition home or self-care (01) | DRG 560 ==
LOC: LDRP 02:55 → OBSVTOIN 03:19 → LDRP 03:24
PROVIDERS: ADMIT Obstetrics & Gynecology; ATTEND Obstetrics & Gynecology
PROC: 10E0XZZ Delivery of Products of Conception, External Approach (ICD-10-PCS; principal; 2025-07-14)
PROC: 0UQMXZZ Repair Vulva, External Approach (ICD-10-PCS; 2025-07-14)
DX: O24.425 Gestational diabetes mellitus in childbirth, controlled by oral hypoglycemic drugs (principal); Z37.0 Single live birth; O69.2XX0 Labor and delivery complicated by other cord entanglement, with compression, not applicable or unspecified; O70.0 First degree perineal laceration during delivery; Z3A.38 38 weeks gestation of pregnancy
CPT/HCPCS: 36415; 59025; 59409; 80053; 80307; 81001; 81002; 85025; 85610; 85730; 86780; 86803; 86850; 86900; 86901; 90715; 94760; 96360; 96361; 96365; 96366; 96372; G0378; J2590